=== PATIENT | female | born 1945 | race Asian ===

== ENCOUNTER 2019-04-10 10:57 | Emergency (ER) | payer OTHER ==
[~2019-04-10] VITALS: Ht 170.2 cm; Wt 101.6 kg
[2019-04-10 11:14] VITALS: TEMP 97.8
[2019-04-10 12:07] LABS: PLATELET COUNT 218 K/uL (152-353)
[2019-04-10 12:11] LABS: POTASSIUM 3.6 mmol/L (3.6-5.2)
[2019-04-10 14:10] VITALS: BP 126/769
== END 2019-04-10 14:10 | disposition home or self-care (01) ==
LOC: ED 10:57
PROVIDERS: Family Medicine
DX: M1A.9XX0 Chronic gout, unspecified, without tophus (tophi) (principal); R80.8 Other proteinuria
CPT/HCPCS: 80053; 81000; 84550; 85027; 96372; 99283; J2175; J2930